=== PATIENT | male | born 1960 | race Caucasian/White ===

== ENCOUNTER 2019-10-20 18:19 | Emergency (ER) | payer SELFPAY ==
--- NOTE | 2019-10-20 19:13 | XRAY Report ---
Reason: Trauma Procedure Date: 10/20/2019 Accession Number: [id number] / [id number] Procedure: XR - Wrist 4 View LT CPT Code: Final Report FULL RESULT: EXAM: LEFT WRIST RADIOGRAPHY EXAM DATE: 10/20/2019 06:48 PM. CLINICAL HISTORY: Fall on outstretched left hand. Wrist pain, swelling, and deformity. COMPARISON: None. TECHNIQUE: 4 views. FINDINGS: Bones: Mildly comminuted minimally impacted intra-articular distal radius fracture. Equivocal subtle nondisplaced ulnar styloid fracture. Joints: Normal alignment. No significant arthritic change. Soft Tissues: Soft tissue swelling overlying the wrist. IMPRESSION: 1. Mildly comminuted, minimally impacted intra-articular distal radius fracture. 2. Equivocal subtle nondisplaced ulnar styloid fracture. RADIA
--- NOTE | 2019-10-20 19:40 | ED Physician Documentation ---
PD HPI UPPER EXT INJURY - Stated complaint Stated Complaint: GLF/LT WRIST INJURY - Chief complaint Chief Complaint: Trauma Ext - History obtained from History obtained from: Patient, Family (who acted as baker apprentice with patient permission.) - History of Present Illness Location: Left, Wrist Type of injury: Fall ([place], landing onto outstretched wrist.) Where injury occurred: Other ([facility]) Timing - onset: Last night Timing - duration: Days (1) Timing - details: Abrupt onset, Still present Worsened by: Moving, Palpating Associated symptoms: Swelling. No: Weakness, Numbness Contributing factors: No: Anticoagulated, Prior ortho surgery Similar symptoms before: Has not had sx before Review of Systems Cardiac: denies: Chest pain / pressure GI: denies: Abdominal Pain Skin: denies: Abrasion (s), Laceration (s) Musculoskeletal: reports: Joint pain (left wrist), Joint swelling Neurologic: denies: Focal weakness, Numbness, Altered mental status, Head injury, LOC PD PAST MEDICAL HISTORY - Past Medical History Past Medical History: Yes Cardiovascular: Hypertension, High cholesterol Respiratory: None Neuro: None Endocrine/Autoimmune: None GI: GERD : None HEENT: None Psych: None Musculoskeletal: None Derm: None - Past Surgical History Past Surgical History: No - Present Medications Home Medications: Ambulatory Orders Medication Instructions Recorded Confirmed Hydrocodone/Acetaminophen 1 each PO Q6H PRN #14 tablet 10/20/19 [Hydrocodon-Acetaminophen 5-325] - Allergies Allergies/Adverse Reactions: Allergies Allergy/AdvReac Type Severity Reaction Status Date / Time aspirin Allergy Unknown Verified 10/20/19 18:27 - Social History Does the pt smoke?: No Smoking Status: Never smoker Does the pt have substance abuse?: No - Immunizations Immunizations are current?: Yes - POLST Patient has POLST: No PD ED PE NORMAL - Vitals Vital signs reviewed: Yes - General General: Alert and oriented X 3, No acute distress, Well developed/nourished - Derm Derm: Normal color, Warm and dry - Extremities Extremities: Other (left wrist with swelling, tenderness at distal radius area. No abrasions. moves fingers flex/ext well. Pain with movement of wrist. ) - Neuro Neuro: Alert and oriented X 3, No motor deficit, No sensory deficit Results - Vitals Vitals: Vital Signs - 24 hr 10/20/19 10/20/19 18:27 20:27 Temperature 36.6 C 37.1 C Heart Rate 81 81 Respiratory 17 16 Rate Blood Pressure 151/74 H 145/89 H O2 Saturation 95 97 Oxygen O2 Source Room air - Rads (name of study) left wrist xray Radiology: Prelim report reviewed (distal radius fracture without angulation nor displacement. Impacted mildly. ), See rad report Procedures - Splint (location) left wrist Splint applied by: Tech Type of splint: Fiberglass Other: Patient tolerated well, No complications, Neurovascular intact, Sling provided PD MEDICAL DECISION MAKING - ED course Complexity details: reviewed results, considered differential, d/w patient Departure - Departure Disposition: Home, Self Care Clinical Impression: Accidental fall Qualifiers: Encounter type: initial encounter Qualified Code(s): W19.XXXA - Unspecified fall, initial encounter Distal radius fracture, right Qualifiers: Encounter type: initial encounter Fracture type: closed Fracture morphology: Colles' Qualified Code(s): S52.531A - Colles' fracture of right radius, initial encounter for closed fracture Condition: Stable Record reviewed to determine appropriate education?: Yes Instructions: ED Fx Forearm Radius Ulna No Redu Requ Follow-Up: Vijay Brothers MD [Provider Admit Priv/Credential] - Prescriptions: Hydrocodone/Acetaminophen [Hydrocodon-Acetaminophen 5-325] 1 each PO Q6H PRN #14 tablet PRN Reason: pain Print Language: Estonian Comments: Keep the splint on and clean and dry. Elevate rest and ice the wrist often to reduce swelling. Follow-up with orthopedics for recheck and change to a cast in likely about 5 days. Call tomorrow for an appointment. Tylenol every 4-6 hours if needed for pain or alternatively hydrocodone if needed for worse pain. Discharge Date/Time: 10/20/19 20:27
[2019-10-20] MEDS ORDERED: ACETAMINOPHEN 500 MG TABLET PO STA (19:54)
[2019-10-20] MEDS ORDERED: HYDROcod/ACET 5/325 Prepack 4 PO STA (19:54)
[2019-10-20] MEDS ORDERED: HYDROcod/ACETAM 5/325 MG TABLET PO STA (19:54)
[2019-10-20 20:28] VITALS: BP 145/89
== END 2019-10-20 20:27 | disposition home or self-care (01) ==
LOC: ED 18:19
DX: S52.532A Colles' fracture of left radius, initial encounter for closed fracture (principal); S52.615A Nondisplaced fracture of left ulna styloid process, initial encounter for closed fracture; W01.0XXA Fall on same level from slipping, tripping and stumbling without subsequent striking against object, initial encounter; Y93.01 Activity, walking, marching and hiking; Y92.89 Other specified places as the place of occurrence of the external cause; I10 Essential (primary) hypertension
CPT/HCPCS: 29125; 73110; 99283; A9270